=== PATIENT | male | born 1990 | race Caucasian/White ===

== ENCOUNTER 2017-02-09 20:24 | Emergency (ER) | payer OTHER ==
[2017-02-09 23:07] VITALS: BP 149/95
== END 2017-02-09 23:07 | disposition home or self-care (01) ==
LOC: ED 20:24
DX: J06.9 Acute upper respiratory infection, unspecified (principal); R03.0 Elevated blood-pressure reading, without diagnosis of hypertension

== ENCOUNTER 2017-07-17 11:48 | Emergency (ER) | payer OTHER ==
[~2017-07-17] VITALS: Ht 182.9 cm; Wt 119.3 kg
[2017-07-17 12:21] VITALS: BP 140/92
== END 2017-07-17 14:48 | disposition home or self-care (01) ==
LOC: ED 11:48
DX: B35.3 Tinea pedis (principal); L03.115 Cellulitis of right lower limb; B00.9 Herpesviral infection, unspecified; R03.0 Elevated blood-pressure reading, without diagnosis of hypertension
CPT/HCPCS: 90715